=== PATIENT | female | born 1975 | race Asian ===

== ENCOUNTER → 2018-02-02 | Day surgery (SDC) | payer BC, OTHER ==
[~2018-02-02] MED LIST: BUPIVACAINE HCL 0.5 % INJ/PF 30 ML SDV ONE; LIDOCAINE 1% INJ-PF (10 MG/ML) 30 ML SDV ONE; LIDOCAINE 2% INJ (20 MG/ML) 20 ML MDV ONE; METHYLPREDNISOLONE ACETATE INJ 40 MG/1 ML ML ONE
--- NOTE | 2018-02-02 15:34 | Operative Report ---
PREOPERATIVE DIAGNOSIS: Lumbar Spondylosis POSTOPERATIVE DIAGNOSIS: Lumbar Spondylosis PROCEDURE: Radiofrequency Ablation of medial branches - LT L2 L3 L4 L5 DATE OF PROCEDURE: [02/02/18] ANESTHESIA: [none] COMPLICATIONS: [none] CONSENT: A full description of the procedure was provided including benefits as well as possible complications. All questions were answered and informed consent was given and signed. ASA guidelines for fasting were verified prior to sedation. PROCEDURE IN DETAIL The patient was brought into the fluoroscopy suite and positioned into the prone position on the fluoroscopy table and allowed to adjust to a position of comfort. A grounding pad was placed on the [LEFT/RIGHT] thigh. The lumbar region was widely prepped with a chloraprep solution, allowed to air dry and draped in standard sterile surgical fashion. Local anesthesia was provided by [1 ] mL of [1]% [lidocaine]delivered with a 25 g needle. A 17g 75mm radiofrequency introducer needle was placed to the planned anatomic targets guided with intermittent fluoroscopy with a perpendicular approach to terminally place at the junction of the superior articular process and the transverse process of the [LEFT] L3 L4 L5 and the base of the sacral ala on the [LEFT] for the L5 medial branch nerve. The stylets were removed and radiofrequency probes with a 4mm active tip were then inserted. Needle tip position of the probes was verified in the AP, oblique, and lateral views. At each site, the medial branch nerve was stimulated at 2 Hz to a maximum 1-2 volts determined to finalize safe needle and electrode placement. The patient was awake and responsive during this portion of the procedure. Each target was anesthetized with 1-2 mL of [2]% [lidocaine] for anesthesia for lesioning and then each target was lesioned at 80 degrees Celsius for 2 minutes and 30 seconds. Tissue impedences were noted to be between 250 and 500 Ohms. A solution of 40mg depomedrol and sensorcaine was 1 cc injected at each site. Electrodes and needles were then removed and bandages placed over the needle placement sites, the patient then returned to the supine position on a stretcher and transported to the recovery room without hemodynamic, neurologic, or allergic reactions. Fluoroscopic images were printed for hard copy recording and digitally archived. POST PROCEDURE EVALUATION: The patient was comfortable in the recovery room. The patient is aware that pain may worsen before remitting and 4 6 weeks may be required prior to the onset of pain relief. IMPRESSION: 1. Technically successful [LEFT] L2 L3 L4 L5 medial branch radiofrequency neurotomy for denervation on the [LEFT] without complication. 2. RTC in [6] weeks. 3. Estimated Blood Loss: [5] 4. Fluoroscopy time: recorded in nursing record
== END ==
LOC: RAD 13:52
PROVIDERS: ATTEND Student in an Organized Health Care Education/Training Program
DX: M47.816 Spondylosis without myelopathy or radiculopathy, lumbar region (principal)
CPT/HCPCS: 64636; 64635; J3490 ×3; J1020

== ENCOUNTER → 2018-02-17 | Day surgery (SDC) | payer BC, OTHER ==
--- NOTE | 2018-02-17 09:03 | Operative Report ---
PREOPERATIVE DIAGNOSIS: Lumbar Spondylosis POSTOPERATIVE DIAGNOSIS: Lumbar Spondylosis PROCEDURE: Radiofrequency Ablation of medial branches - RT L2 L3 L4 L5 DATE OF PROCEDURE: [02/17/18] ANESTHESIA: [local] COMPLICATIONS: [none] CONSENT: A full description of the procedure was provided including benefits as well as possible complications. All questions were answered and informed consent was given and signed. ASA guidelines for fasting were verified prior to sedation. PROCEDURE IN DETAIL The patient was brought into the fluoroscopy suite and positioned into the prone position on the fluoroscopy table and allowed to adjust to a position of comfort. A grounding pad was placed on the [LEFT] thigh. The lumbar region was widely prepped with a chloraprep solution, allowed to air dry and draped in standard sterile surgical fashion. Local anesthesia was provided by [1] mL of [1 ]% [lidocaine]delivered with a 25 g needle. A 17g 75mm radiofrequency introducer needle was placed to the planned anatomic targets guided with intermittent fluoroscopy with a perpendicular approach to terminally place at the junction of the superior articular process and the transverse process of the [RIGHT] L3 L4 L5 and the base of the sacral ala on the RIGHT for the L5 medial branch nerve. The stylets were removed and radiofrequency probes with a 4mm active tip were then inserted. Needle tip position of the probes was verified in the AP, oblique, and lateral views. At each site, the medial branch nerve was stimulated at 2 Hz to a maximum 1-2 volts determined to finalize safe needle and electrode placement. The patient was awake and responsive during this portion of the procedure. Each target was anesthetized with 1-2 mL of [2]% [lidocaine] for anesthesia for lesioning and then each target was lesioned at 80 degrees Celsius for 2 minutes and 30 seconds. Tissue impedences were noted to be between 250 and 500 Ohms. A solution of 40mg depomedrol and 0.25% sensorcaine was injected with 1 cc per level. Electrodes and needles were then removed and bandages placed over the needle placement sites, the patient then returned to the supine position on a stretcher and transported to the recovery room without hemodynamic, neurologic, or allergic reactions. Fluoroscopic images were printed for hard copy recording and digitally archived. POST PROCEDURE EVALUATION: The patient was comfortable in the recovery room. The patient is aware that pain may worsen before remitting and 4 to 6 weeks may be required prior to the onset of pain relief. IMPRESSION: 1. Technically successful [RIGHT] L2 L3 L4 L5 medial branch radiofrequency neurotomy for denervation on the [RIGHT] without complication. 2. RTC in [4] weeks. 3. Estimated Blood Loss: [1cc] 4. Fluoroscopy time: see nursing record
== END ==
LOC: RAD 08:06
PROVIDERS: ATTEND Student in an Organized Health Care Education/Training Program
DX: M47.816 Spondylosis without myelopathy or radiculopathy, lumbar region (principal)
CPT/HCPCS: 64635; 64636; J3490 ×3; J1020

== ENCOUNTER → 2018-02-19 | Outpatient (CLI) | payer BC, OTHER ==
--- NOTE | 2018-02-20 09:33 | WOMENS IMAGING REPORT ---
EXAM DESCRIPTION: BILAT SCREENING MAMMO W/CAD COMPLETED DATE/TIME: 02/19/2018 2:06 pm REASON FOR STUDY: ROUTINE SCREENING;Z12.31 Z12.31 ENCNTR SCREEN MAMMOGRAM FOR MALIGNANT NEOPLASM OF ELIZABETH COMPARISON: 02/07/2016 and 09/28/2014 TECHNIQUE: Standard craniocaudal and mediolateral oblique views of each breast recorded using digita l acquisition. Additional "push-back" craniocaudal and mediolateral oblique images acquired. LIMITATIONS: None. FINDINGS: IMPLANTS: Bilateral subpectoral implants. Findings present which are benign by mammographic criteria. No suspicious masses, calcifications or architectural distortion. Read with the assistance of CAD. .[facility] - R2 Cenova Version 1.3 .[facility] - R2 Cenova Version 1.3 .[facility] - R2 Cenova Version 2.4 .[facility] - R2 Cenova Version 2.4 .[facility] - R2 Paper Folding Machine Operator Version 9.2 Benign mammographic findings may include one or more of the following: Smooth masses, popcorn/rim/co arse calcifications, asymmetries, post-procedure changes, and lesions with long-standing stability. IMPRESSION: BENIGN MAMMOGRAPHIC FINDINGS. BIRADS 2 BREAST DENSITY: b. There are scattered areas of fibroglandular density. BIRAD: 2 BENIGN FINDING(S) RECOMMENDATION: ROUTINE SCREENING COMMENT: The patient has been notified of the results by letter per SA requirements. Additional no tification policies are in place for contacting patient with suspicious or incomplete findings. Quality ID #[id number]: The [employer] recommends an annual screening mammogram for women aged 40 years or over. This facility utilizes a reminder system to ensure that all patients receive reminder letters, and/or direct phone calls for appointments. This includes reminders for routine scr eening mammograms, diagnostic mammograms, or other Breast Imaging Interventions when appropriate. Th is patient will be placed in the appropriate reminder system. The [employer] (A[employer]) has developed recommendations for screening MRI of the breast s in certain patient populations, to be used in conjunction with mammography. Breast MRI surveillanc e may be appropriate for women with more than 20% lifetime risk of developing breast cancer as deter mined by genetic testing, significant family history of the disease, or history of mantle radiation f or Hodgkins Disease. ACR Practice Guidelines 2008. TECHNICAL DOCUMENTATION: FINDING NUMBER: (1) ASSESSMENT: (1) JOB ID: [id number] [employer]- All Rights Reserved Reading location - IP/workstation name: [email or web address]
== END ==
LOC: WI 13:38
PROVIDERS: ATTEND Internal Medicine
DX: Z12.31 Encounter for screening mammogram for malignant neoplasm of breast (principal); Z98.82 Breast implant status
CPT/HCPCS: 77067

== ENCOUNTER → 2020-07-26 | Outpatient (CLI) | payer BC, OTHER ==
[~2020-07-26] MED LIST changes: -BUPIVACAINE HCL 0.5 % INJ/PF 30 ML SDV ONE; -LIDOCAINE 1% INJ-PF (10 MG/ML) 30 ML SDV ONE; -LIDOCAINE 2% INJ (20 MG/ML) 20 ML MDV ONE; -METHYLPREDNISOLONE ACETATE INJ 40 MG/1 ML ML ONE; +NITROGLYCERIN 0.4 MG/TAB 25 TAB/BOTTLE ONE
--- NOTE | 2020-07-27 00:27 | DRAGON STRESS TEST REPORT ---
Data procedure: 07/26/2020.Ordering Physician: Dr.Patricia Lemus Patient Status: Outpatient. Indication:: Chest pain and shortness of breath. Coronary risk factors:. Age, hypertension, and history of premature coronary artery disease in the patient's mother. Significant physical findings prior to stress testing show a blood pressure of , 99/70 and a heart rate of beats 91 per minute. Auscultation of the heart shows normal S1 and S2. No S3 or S4 gallops. Systolic murmur in the left sternal border and apex. Lungs are clear to auscultation and percussion. Resting 12-lead EKG:. Sinus Rhythm. EKG within normal limits. Procedure: The patient was excised on a standard [employer] protocol. . The patient walked a total of 5 minutes and 36 seconds on this protocol and reached a peak heart rate of 142 beats per minute, which is 82% maximum predicted heart rate for age. This is at a workload of 7 METS. The test was stopped because of patient developing chest pain/pressure and shortness of breath similar to her clinical symptoms.. The patient described symptoms of chest pain//pressure with shortness of breath at a heart rate of 129 bpm and described as a scale of 1/5. This continued an increase in her heart rate of 139 bpm her chest pain was 2/5 this started increasing and hence the treadmill stress test was stopped with the patient achieving 82% of her maximum predicted heart rate. This shortness of breath and chest pressure continued into recovery and at rest. Within 2 minutes of the patient receiving sublingual nitroglycerin the chest pressure and shortness of breath subsided totally. There were no EKG changes of ischemia. Exercise EKG's show: There is no EKG evidence of exercise-induced ischemia. Arrhythmias seen: None. The blood pressure response was At peak exercise the blood pressure was 162/77 millimeters of Hg. The double product was 22 K. Summary of findings and interpretation: 1. The patient's chest pain or chest pressure with shortness of breath symptoms reproduced. This was relieved with 1 sublingual nitroglycerin 2. No EKG evidence of ischemia in the form of ST segment depression.? False negative. 3. Normal blood pressure response. 4. No arrhythmias seen. 5. Fair exercise tolerance, fair aerobic capacity. Diagnostic treadmill stress test negative for ischemia by EKG criteria. [? False negative EKG findings] Recommendations: Correlate with nuclear Cardiolite images. Nuclear data: At rest the patient was given 10.99 millicuries of technetium 99 sestamibi, and as per protocol rest none gated SPECT images were obtained. The patient was exercised on a treadmill [see exercise physiology]. One minute prior to termination of exercise, 35.3 millicuries of technetium and there sestamibi was injected intravenously. As per protocol stress gated images were obtained. Impression: Review of images show that all segments of the myocardium had normal perfusion at rest, and normal perfusion post exercise. All segments of the myocardium had normal motion, contraction, and thickening by gated study. T. I D. ratio was 0. 80. There is no transient ischemic dilatation of the left ventricle.. The computer read rest and stress left ventricular ejection fractions were 56%, and 62% respectively. Visually both the ejection fractions were normal in excess of 60 %. Conclusions: 1. The patient's clinical symptoms of exercise-induced myocardial ischemia at a peak heart rate of 142 beats per minute, patient having achieved 82% of maximum predicted heart rate for age, at a workload of of 7 METS. There is relieved with sublingual nitroglycerin. 2. No EKG evidence of exercise-induced myocardial ischemia.? False negative 3. Normal blood pressure response to exercise. 4. No arrhythmias seen. 6.No scintigraphic evidence of exercise-induced myocardial ischemia.? Balanced ischemia 7.No scintigraphic evidence of myocardial infarction/scar. Recommendations 1. In view of the multiple CAD risk factors and the patient's symptoms which are relieved with sublingual nitroglycerin in spite of the EKG showing no ischemia and normal perfusion imaging would still strongly recommend cardiac catheterization to make sure we are not missing multivessel coronary artery disease causing balanced ischemia. Would recommend sublingual nitroglycerin 0.4 mg sublingual as needed chest pain. A prescription has been given. 2. Aggressive coronary risk factor modification, and treatment of underlying comorbidities. Discussed with the patient and with the patient's Dr. Ludwig. At his request I have contacted Dr. Echeverria to arrange for cardiac catheterization as an outpatient in [place]. [facility]
== END ==
LOC: RAD 06:51
PROVIDERS: ATTEND Family Medicine
DX: R07.9 Chest pain, unspecified (principal); R06.02 Shortness of breath; I10 Essential (primary) hypertension
CPT/HCPCS: 93017; 78452; A9500; Q9969

== ENCOUNTER → 2020-10-06 | Outpatient (CLI) | payer BC, OTHER ==
[~2020-10-06] MED LIST changes: +COVID-19 VACCINE (PFIZER)/PF 30 MCG/0.3 ML VIAL IM ONE; +EPINEPHRINE INJ/PF 1 MG/1 ML AMPULE IM PRN; -NITROGLYCERIN 0.4 MG/TAB 25 TAB/BOTTLE ONE
== END ==
LOC: EMPHEALTH 13:20
PROVIDERS: ATTEND Internal Medicine
DX: Z23 Encounter for immunization (principal)
CPT/HCPCS: 91300

== ENCOUNTER → 2020-10-27 | Outpatient (CLI) | payer BC, OTHER | LOC: EMPHEALTH 12:00 | PROVIDERS: ATTEND Internal Medicine | DX: Z23 Encounter for immunization (principal) | CPT/HCPCS: 91300 ==